=== PATIENT | female | born 1975 | race Caucasian/White ===

== ENCOUNTER 2017-05-20 12:41 | Inpatient (IN) ==
[2017-05-20 13:29] LABS: Basophils % 0.2 %; Eosinophils % 0.2 %; Hematocrit 38.8 % (35.3-44.9); Hemoglobin 13.2 g/dL (11.5-15.4); Immature Granulocytes % 0.5 % (0-4); Lymphocytes # 1.2 K/mcL (0.6-4.6); Lymphocytes % 7.9 %; Mean Corpuscular Hemoglobin 30.3 pg (28.0-33.3); Mean Platelet Volume 9.5 fL (9.4-12.4); Monocytes # 1.3 K/mcL (0.0-1.3); Neutrophils # 12.2 K/mcL (1.6-8.9); Platelet Count 247 K/mcL (140-400); Red Blood Count 4.36 M/mcL (3.82-4.97); Red Cell Distribution Width 12.5 % (11.5-14.5); Segmented Neutrophils % 82.2 %
[2017-05-20 13:42] LABS: BUN/Creatinine Ratio 10 (6-26); Blood Urea Nitrogen 9 mg/dL (7-20); Carbon Dioxide 26 mEq/L (19-29); Chloride 104 mEq/L (98-109); Glucose 83 mg/dL (70-99); Osmolality,Calculated 282 (280-300); Potassium 3.5 mEq/L (3.5-4.5); Sodium 137 mEq/L (136-145); eGFR For African Americans > 60 (> 60); eGFR For Non-African Americans > 60 (> 60)
[2017-05-20] MEDS ORDERED: cephALEXin 250 MG CAPSULE PO ONE (13:58)
[2017-05-20] MEDS ORDERED: Vancomycin 1,000 MG in D5% in Water 250 ML IVPB ONE (14:15)
[2017-05-20] MEDS ORDERED: Tdap (Boostrix) Vaccine 0.5 ML SYRINGE IM ONE (14:29)
[2017-05-20] MEDS: *HR* HYDROcodone/Acet 5/325 mg TABLET PO ONE ×2 (14:46→14:52)
--- NOTE | 2017-05-20 14:48 | Emergency Department Note ---
Disposition Clinical Impression: Cellulitis Qualifiers: Site of cellulitis: trunk Site of cellulitis of trunk: abdominal wall Qualified Code(s): L03.311 - Cellulitis of abdominal wall Disposition: Admitted As Inpatient Condition: Fair Instructions: Cellulitis (ED) Referrals: Shalom Vasquez MD [Primary Care Provider] - Forms: ED Satisfaction Letter Time of Disposition: 14:48 Skin/Abscess/FB HPI Chief complaint: ED Skin/Abscess/Foreign Body Stated complaint: bug bite-abdomen Time Seen by Provider: 05/20/17 12:54 Source: patient Mode of arrival: ambulatory Limitations: no limitations Nursing Notes Reviewed: Yes Vital Signs Reviewed: Yes HPI Narrative: Patient is a 41-year-old female no past medical history that presents to the ED with chief complaint cellulitis to abdomen. Patient reports that she was bitten by a bug approximately 4 days ago while working in her garden. Pt started on Bactrim yesterday by her PCP. Patient states that area continues to worsen. States that she is also now having fever, nausea and body aches. She is not up-to-date on tetanus. Pt Subjective Complaint: insect bite/sting, other (Cellulitis worsening) Onset (ago): day(s) Tetanus Up to Date: no Location: Abdomen Severity: moderate Severity scale (1-10): 5 Quality: aching, dull Consistency: constant Improves with: none Worsens with: none Context: none, recent antibiotic (Bactrim) Associated symptoms: Reports: denies other symptoms, fever, chills, nausea, malaise, arthralgias. Denies: rigors, itching, vomiting, myalgias, cough, shortness of breath Home Medications Medication Instructions Recorded Confirmed Fexofenadine HCl 60 mg PO DAILY 05/20/17 05/20/17 Multivitamin [Multi-Day Vitamins] 1 tab PO DAILY 05/20/17 05/20/17 Sulfamethoxazole/Trimeth DS 1 tab PO BID 05/20/17 05/20/17 [Bactrim DS] Allergies Allergy/AdvReac Type Severity Reaction Status Date / Time No Known Allergies Allergy Verified 05/20/17 12:47 All systems ED: reviewed and negative except as stated. Constitutional: Reports: fever, chills. Denies: weakness Cardiovascular: Denies: chest pain Respiratory: Denies: dyspnea Gastrointestinal: Reports: nausea. Denies: abdominal pain, vomiting, diarrhea, constipation, hematemesis, melena, hematochezia Musculoskeletal: Denies: back pain, neck pain Integumentary: Reports: other (Cellulitis). Denies: rash, abrasion Neurological: Denies: headache, weakness, numbness, paresthesias Past Medical History - Past Medical History Source: patient Medical history: Reports: no medical history Psychiatric history: Reports: no psych history DIRECTOR VIDEO history: Reports: no DIRECTOR VIDEO history - Social History Smoking Status: Never smoker Smokeless Tobacco Status: No Alcohol use: Reports: occasionally Drug use: Reports: none Physical Exam - General Limitations: no limitations General appearance: alert, in no apparent distress - Head Head exam: normal inspection - Eye Eye exam: Present: normal appearance - ENT ENT exam: mucous membranes moist - Neck Neck exam: Present: normal inspection - Chest Chest inspection: Present: symmetric chest wall rise - Respiratory Respiratory exam: Present: normal lung sounds bilaterally - Cardiovascular Cardiovascular exam: Present: regular rate, normal rhythm, normal heart sounds - Abdominal Exam Abdominal exam: Present: soft, tenderness (mild tenderness over cellulits. ), normal bowel sounds, other (Soft: small puncture wound noted to right mid abd with surrounding cellulitis approximately 20 cm x 10 cm in size. Mild tenderness with palpation over cellulits. Induration noted. No fluctuance appreciated. ). Absent: distention, guarding, rebound, rigidity, diminished bowel sounds, hyperactive bowel sounds, hypoactive bowel sounds, organomegaly, trauma, incision, psoas sign, obturator sign, heel tap sign, Mckeon's sign, Rovsing's sign, tenderness at McBurney's Point, ascites, bruit, pulsatile mass, hernia, scar - Extremities Exam Extremities exam: Present: normal inspection - Expanded Lower Extremity Exam Gait: observed and normal - Back Exam Back exam: Present: normal inspection, full ROM. Absent: tenderness - Neurological Exam Neurological exam: Present: alert, oriented X3 - Psychiatric Psychiatric exam: Present: normal affect, normal mood - Skin Skin exam: Present: warm, dry, intact, normal color. Absent: rash, cyanosis, diaphoresis Course Course Narrative: Patient is a 41-year-old female no past medical history that presents to the ED with chief complaint cellulitis to abdomen. Patient reports that she was bitten by a bug approximately 4 days ago while working in her garden. Pt started on Bactrim yesterday by her PCP. Patient states that area continues to worsen. States that she is also now having fever, nausea and body aches. She is not up-to-date on tetanus. Pt is a nontoxic-appearing 40-year-old female. Temp 99.9. Heart: RRR. Lungs CTAB. Abdomen: Soft: small puncture wound noted to right mid abd with surrounding cellulitis approximately 20 cm x 10 cm in size. Mild tenderness with palpation of area. Induration noted. No fluctuance appreciated. Back normal inspection, nontender. Extremities within normal limits. Neuro: no focal neurological deficits noted on exam. Bedside ultrasound was obtained. Cellulitis noted with a very small loculation , most likely reactive from the insect bite. Pt doesn't want area I&D. WBC 14.9 Tylenol given for pain. Discussed with patient the option of discharging her home or admitting her for failed outpatient. Patient states that she does not feel well enough to go home and would like to be admitted. Vancomycin ordered. Discussed case with hospitalist. He accepted patient. No other request at this time. Dr. Saenz had [id number] time the patient agrees with my assessment and treatment plan. Vital Signs Temperature 99.9 F H 05/20/17 12:47 Pulse Rate 97 05/20/17 12:47 Respiratory Rate 20 05/20/17 12:47 Blood Pressure 124/82 05/20/17 12:47 O2 Sat by Pulse Oximetry 98 05/20/17 12:47 Temperature 99.9 F H 05/20/17 12:47 Pulse Rate 97 05/20/17 12:47 Respiratory Rate 20 05/20/17 12:47 Blood Pressure 124/82 05/20/17 12:47 O2 Sat by Pulse Oximetry 98 05/20/17 12:47 Oxygen Delivery Oxygen Delivery Room Air Skin/Abscess/Foreign Body - Medical Records Medical records reviewed: Yes I reviewed the patient's medical records. - Lab Data Lab results reviewed: Yes I reviewed the patient's lab results. Result diagrams: 05/20/17 13:23 05/20/17 13:23 Lab Results 05/20/17 05/20/17 Range/Units 13:23 13:23 WBC 14.9 H (4.3-11.1) K/mcL RBC 4.36 (3.82-4.97) M/mcL Hgb 13.2 (11.5-15.4) g/dL Hct 38.8 (35.3-44.9) % MCV 89.0 (83.0-100.0) fL MCH 30.3 (28.0-33.3) pg MCHC 34.0 (31.6-35.5) g/dL RDW 12.5 (11.5-14.5) % Plt Count 247 (140-400) K/mcL MPV 9.5 (9.4-12.4) fL Immature Gran % 0.5 (0-4) % Seg Neutrophils % 82.2 % Lymphocytes % 7.9 % Monocytes % 9.0 % Eosinophils % 0.2 % Basophils % 0.2 % Neutrophils # 12.2 H (1.6-8.9) K/mcL Lymphocytes # 1.2 (0.6-4.6) K/mcL Monocytes # 1.3 (0.0-1.3) K/mcL Eosinophils # 0.0 (0.0-0.6) K/mcL Basophils # 0.0 (0.0-0.2) K/mcL Sodium 137 (136-145) mEq/L Potassium 3.5 (3.5-4.5) mEq/L Chloride 104 (98-109) mEq/L Carbon Dioxide 26 (19-29) mEq/L BUN 9 (7-20) mg/dL Creatinine 0.86 (0.57-1.11) mg/dL Est GFR ( Amer) > 60 (> 60) Est GFR (Non-Af Amer) > 60 (> 60) BUN/Creatinine Ratio 10 (6-26) Glucose 83 (70-99) mg/dL Calculated Osmolality 282 (280-300) Calcium 10.0 (8.6-10.8) mg/dL Attestation Statement - Attestation Attestation: I, Abdullahi Saenz DO have provided [id number] time during the care of this patient. Detailed review the presentation, symptoms, medical history were discussed and reviewed with the mid-level provider Farhana Saenz PA-C/KEYSMITH. Medical intervention labs and imaging studies were reviewed in detail. See full documentation of physical exam and course of care in the mid-level provider 's note. I agree with the determined course of care, medical interventio,n and disposition put forth by the mid-level provider. See below documentation for changes or alterations in documentation. 41-year-old female presents emergency room with what appears to be insect bites of the abdomen. She was seen by her PCP and started on Bactrim secondary to concern for infection. Over the last 2-3 days the abscess areas continued to get more red swollen and irritated. Patient is borderline febrile with a temperature of 100 here in the emergency room along with systemic symptoms including myalgias muscle aches and fever. Patient denies any tick bite exposure. Denies any other medical history. She is not up-to-date on tetanus. Patient has been taking antibiotics as prescribed at home but the redness swelling and irritation of his progress. Because patient has progression of symptoms and what appears to be filled outpatient treatment IV antibiotics labs and admission were offered to the patient. After treatment course here in the emergency room she elected to be admitted. Patient will be admitted at this time for what appears to be clinical progression of superficial cellulitis. Bedside ultrasound completed showing small loculation most likely reactionary secondary to the bite. Admission passes completed at this time see detailed documentation of his course of care and conversations in the mid-level provider' s note. I agree with the medical intervention and treatment course
--- NOTE | 2017-05-20 15:20 | Event Note ---
Date of Encounter: 05/20/17 Time of Encounter: 15:16 1. Sepsis secondary to abdominal cellulitis (white blood cell count 14.9 heart rate 97) but failed outpatient therapy with Bactrim, insect bite related Start doxycycline IV 100 mg twice a day, blood cultures Consider vancomycin IV if not improving. Marked the affected area IV fluids, Motrin Toradol for pain Consider imaging studies if not improving 2. Leukocytosis related to sepsis 3. Fever, low-grade Early ambulation for DVT prophylaxis. Patient will be admitted as inpatient, expected stay more than to midnights. Full code. Time spent on this admission 40 minutes. High risk due to sepsis. Note to be written by NOE Pascual
[2017-05-20] MEDS ORDERED: 0.9 % Sodium Chloride 500 ML IVC ONE (15:32)
[2017-05-20] MEDS ORDERED: Ibuprofen 400 MG TABLET PO PRN (15:33)
[2017-05-20] MEDS ORDERED: Naloxone 0.4 MG/ML INJ IVP PRN (15:33)
[2017-05-20] MEDS ORDERED: Ondansetron 4 MG/2 ML VIAL IVP PRN (15:33)
--- NOTE | 2017-05-20 15:56 | Internal Med History&Physical ---
<Yazmin Pascual M - Last Filed: 05/20/17 16:05> Date of Encounter: 05/20/17 Time of Encounter: 15:47 Assessment and Plan (1) Cellulitis Current visit: Yes Status: Acute Patient presented with erythema and tenderness to area over right side of abdomen. She started bactrim PO yesterday after seeing her PCP. Her sympoms have continue to progress despite starting antibiotics. IV doxycycline BID IV fluids 0.9NS at 100mL/hr Area of erythema marked to monitor progression of cellulitis. Qualifiers: Site of cellulitis: trunk Site of cellulitis of trunk: abdominal wall Qualified Code(s): L03.311 - Cellulitis of abdominal wall (2) Sepsis Current visit: Yes Status: Acute Patient presents with bug bite from 4 days ago with worsening erythema and flu like symptoms. WBC 14.9, patient mildly tachycardic with HR in 90s. Blood cultures and lactate ordered Patient given 1L bolus Patient started on broad spectrum antibiotics with vancomycin in ED, will switch to doxycycline. Qualifiers: Sepsis type: sepsis due to unspecified organism Qualified Code(s): A41.9 - Sepsis, unspecified organism (3) Nausea Current visit: Yes Status: Acute Patient reporting occasional nausea. PRN zofran. (4) Low grade fever Current visit: Yes Status: Acute Patient with fever of 99.9, reporting chills and sweats. tyelenol and ibuprofen PRN for fever and discomfort. (5) DVT prophylaxis Current visit: Yes Status: Acute anti-embolic stockings lovenox 40mg SQ daily Internal Medicine - H&P: HPI Chief complaint: cellulitis Admitted From: Emergency Dept Plans for Post Hospital Care: Home History of present illness: Ms. Plascencia is a 41 year old female with no medical history presents with complaints of bug bite. Patient reports she was working in her garden 4 days ago and got a bug bite on her abdomen. She reports the next day the bite was red and itchy and appeared like a mosquito day. It was bigger and tender then following day, and yesterday the redness spread and she started having flu like symptoms with subjective fever, chills, sweats, nausea and body aches. She presented to her PCP who prescribed bactrim, but her symptoms progressed today. She denies any lightheadness, dizziness, chest pain, palpitations, shortness of breath, vomiting. She reports some diarrhea since starting the bactrim. Evaluation in the ED revealed elevated WBC of 14.9, low grade fever of 99.9 and mild tachycardia with HR in the 90s. On exam, patient alert and oriented, in no distress. Heart has regular rate and rhythm, lungs clear bilaterally to auscultation. Right side of abdomen with erythema approximately 20cm x 10cm with central firmness to palpation. Patient reports area is tender. Past Med Surg Social Fam HX - Past Medical History Medical history: no medical history Psychiatric history: no psych history - Past Surgical History Surgical History: other (adenoidectomy, d&c) - Social History Smoking Status: Former smoker Smokeless Tobacco Status: No Alcohol use: occasionally Drug use: none - Family History Mother Living Status: Still Living Hx Family Cardiac Disorders: Yes (Aortic stenosis) Father Living Status: Still Living Hx Family Cardiac Disorders: Yes ([place]) Internal Medicine - H&P: Meds Fexofenadine HCl 60 mg PO DAILY 05/20/17 [History] Multivitamin [Multi-Day Vitamins] 1 tab PO DAILY 05/20/17 [History] Sulfamethoxazole/Trimeth DS [Bactrim DS] 1 tab PO BID 05/20/17 [History] Allergies No Known Allergies Allergy (Verified 05/20/17 12:47) All Systems PM: A 10-system review of systems was performed and is negative for pertinent findings except as documented above in the HPI. - Constitutional Constitutional: chills, fever(s), malaise, no night sweats - EENT Eyes: no change in vision, no discharge, no pain, no photophobia Ears: no ear discharge, no ear pain, no tinnitus Nose, mouth and throat: no dysphagia, no nasal discharge, no neck pain, no sore throat - Cardiovascular Cardiovascular ROS IM: no chest pain, no diaphoresis, no dyspnea, no lightheadedness, no palpitations, no syncope - Respiratory Respiratory: no cough, no dyspnea, no wheezing, no excessive phlegm production - Gastrointestinal Gastrointestinal: nausea, no abdominal pain, no diarrhea, no hematemesis, no hematochezia, no melena, no vomiting - Genitourinary Genitourinary: no change in urinary stream, no dysuria, no flank pain, no hematuria - Musculoskeletal Musculoskeletal ROS IM: no numbness, no tingling - Integumentary Integumentary IM: as per HPI, no rash, no unusual bruising - Neurological Neurological ROS: no confusion, no convulsions, no focal weakness, no numbness, no tingling, no tremor(s) - Hematologic/Lymphatic Hematologic/Lymphatic: no easy bruising - Constitutional Vitals: Temp Pulse Resp BP Pulse Ox 99.9 F H 97 20 124/82 98 05/20/17 12:47 05/20/17 12:47 05/20/17 12:47 05/20/17 12:47 05/20/17 12:47 General appearance: Present: A&O X 3, morbidly obese, pleasant, no acute distress - Head Head exam: Present: atraumatic, normocephalic - Eye Eye exam: Present: PERRL, conjuntiva pink, sclera anicteric Pupils: Present: PERRL - Neck Neck exam general surgery: Present: supple, trachea midline. Absent: lymphadenopathy - Respiratory Respiratory exam: Present: CTAB. Absent: accessory muscle use, rales, rhonchi, wheezes - Cardiovascular Cardiovascular exam: Present: RRR, +S1, +S2. Absent: diastolic murmur, gallop, rubs, systolic murmur - GI/Abdominal GI/Abdominal exam: Present: normal bowel sounds, soft, no peritoneal signs. Absent: distended, tenderness - Extremities Exam Extremities exam: Present: warm, radial pulses palpable and symetrical. Absent : calf tenderness, cyanotic, pedal edema - Neurological Exam Neurological exam: Present: CN II-XII intact, oriented X3, no focal deficits. Absent: pronater drift, facial droop, speech deficit - Skin Additional comments: right side of abdomen with 20cm x 10cm area of tender erythema, with central firmness to palpation. area marked. Internal Med - H&P Results - Labs CBC & Chem 7: 05/20/17 13:23 05/20/17 13:23 Labs: Short CBC 05/20/17 Range/Units 13:23 WBC 14.9 H (4.3-11.1) K/mcL Hgb 13.2 (11.5-15.4) g/dL Hct 38.8 (35.3-44.9) % Plt Count 247 (140-400) K/mcL Neutrophils # 12.2 H (1.6-8.9) K/mcL [facility] 05/20/17 13:23 Sodium 137 Potassium 3.5 Chloride 104 Carbon Dioxide 26 BUN 9 Creatinine 0.86 Glucose 83 Calcium 10.0 <Hieu Yang H - Last Filed: 05/21/17 11:44> Date of Encounter: 05/21/17 Internal Medicine - H&P: HPI History of present illness: Ms. Plascencia is a 41 year old female All Systems PM: A 10-system review of systems was performed and is negative for pertinent findings except as documented above in the HPI. - Constitutional Vitals: Temp Pulse Resp BP Pulse Ox 98.0 F 70 16 104/70 94 05/21/17 07:17 05/21/17 07:17 05/21/17 07:17 05/21/17 07:17 05/21/17 10:54 Internal Med - H&P Results - Labs CBC & Chem 7: 05/21/17 06:00 05/21/17 06:00 Labs: Short CBC 05/21/17 Range/Units 06:00 WBC 13.2 H (4.3-11.1) K/mcL Hgb 11.2 L D (11.5-15.4) g/dL Hct 33.7 L (35.3-44.9) % Plt Count 229 (140-400) K/mcL Neutrophils # 10.4 H (1.6-8.9) K/mcL [facility] 05/21/17 06:00 Sodium 136 Potassium 3.3 L Chloride 107 Carbon Dioxide 22 BUN 7 Creatinine 0.76 Glucose 105 H Calcium 8.9 - Attending Attestation 1. Sepsis secondary to abdominal cellulitis (white blood cell count 14.9 heart rate 97) but failed outpatient therapy with Bactrim, insect bite related Start doxycycline IV 100 mg twice a day, blood cultures Consider vancomycin IV if not improving. Marked the affected area IV fluids, Motrin Toradol for pain Consider imaging studies if not improving 2. Leukocytosis related to sepsis 3. Fever, low-grade Early ambulation for DVT prophylaxis. Patient will be admitted as inpatient, expected stay more than to midnights. Full code. Time spent on this admission 40 minutes. High risk due to sepsis. For this encounter, I have reviewed the MINE PATROL or PA documentation, treatment plan, and medical decision making; and I have had face to face time with this patient.
[2017-05-20] MEDS: 0.9 % Sodium Chloride 1,000 ML IVC SCH (16:07)
[2017-05-20] MEDS: Doxycycline 100 MG in 0.9 % Sodium Chloride Mini Bag 100 ML IVPB SCH (17:13)
[2017-05-20] MEDS ORDERED: Acetaminophen 325 MG TABLET PO PRN (21:00)
[2017-05-21] MEDS: 0.9 % Sodium Chloride 1,000 ML IVC SCH ×2 (03:53→17:12)
[2017-05-21] MEDS: Doxycycline 100 MG in 0.9 % Sodium Chloride Mini Bag 100 ML IVPB SCH ×2 (05:12→17:12)
[2017-05-21] MEDS: *HR* Enoxaparin 40 MG/0.4 ML SYRINGE SQ SCH (05:13)
[2017-05-21 06:12] LABS: Basophils % 0.2 %; Eosinophils # 0.1 K/mcL (0.0-0.6); Eosinophils % 0.7 %; Hematocrit 33.7 % (35.3-44.9); Immature Granulocytes % 0.8 % (0-4); Lymphocytes # 1.5 K/mcL (0.6-4.6); Lymphocytes % 11.6 %; Mean Corpuscular HGB Conc 33.2 g/dL (31.6-35.5); Mean Corpuscular Hemoglobin 29.3 pg (28.0-33.3); Mean Corpuscular Volume 88.2 fL (83.0-100.0); Mean Platelet Volume 9.7 fL (9.4-12.4); Monocytes % 7.8 %; Neutrophils # 10.4 K/mcL (1.6-8.9); Platelet Count 229 K/mcL (140-400); Red Blood Count 3.82 M/mcL (3.82-4.97); Red Cell Distribution Width 12.6 % (11.5-14.5); Segmented Neutrophils % 78.9 %
[2017-05-21 06:19] LABS: Hemoglobin 11.2 g/dL (11.5-15.4)
[2017-05-21 06:30] LABS: BUN/Creatinine Ratio 9 (6-26); Blood Urea Nitrogen 7 mg/dL (7-20); Calcium 8.9 mg/dL (8.6-10.8); Carbon Dioxide 22 mEq/L (19-29); Chloride 107 mEq/L (98-109); Glucose 105 mg/dL (70-99); Osmolality,Calculated 280 (280-300); Potassium 3.3 mEq/L (3.5-4.5); Sodium 136 mEq/L (136-145); eGFR For African Americans > 60 (> 60); eGFR For Non-African Americans > 60 (> 60)
[2017-05-21] MEDS: Vancomycin 1,500 MG in D5% in Water 250 ML IVPB SCH (13:30)
[2017-05-21] MEDS: Acetaminophen 325 MG TABLET PO PRN ×2 (13:34→22:00)
--- NOTE | 2017-05-21 15:41 | Internal Med Progress Note ---
Date of Encounter: 05/21/17 Time of Encounter: 10:10 - Assessment and plan (1) Cellulitis Current Visit: Yes Status: Acute Assessment and plan: Acute cellulitis of the right abdominal wall - secondary to insect bite - now improving Continue empiric IV doxycycline, IV vancomycin, continue IV fluids Labs in a.m., anticipate discharge home in a.m. with by mouth Bactrim and doxycycline Qualifiers: Site of cellulitis: trunk Site of cellulitis of trunk: abdominal wall Qualified Code(s): L03.311 - Cellulitis of abdominal wall (2) DVT prophylaxis Current Visit: Yes Status: Acute Assessment and plan: Continue Lovenox subcutaneous - Time Spent With Patient 25 - 35 minutes - Subjective Interval history: Examined this morning. Patient is awake and alert. Not in any distress. Denies chest pain or shortness of breath. No fever. Admitted for cellulitis over the abdominal wall. Patient has been started on IV doxycycline. Patient states her pain is now better. No other acute events or complaints. - Constitutional Vitals: Temp Pulse Resp BP Pulse Ox 98.3 F 76 16 108/72 98 05/21/17 15:08 05/21/17 15:08 05/21/17 15:08 05/21/17 15:08 05/21/17 15:08 General appearance: Present: A&O X 3, morbidly obese, pleasant, no acute distress, answers questions appropriately - Head Head exam: Present: atraumatic - Eye Eye exam: Present: EOMI - ENT ENT exam: Present: mucous membranes moist - Neck Neck exam general surgery: Present: supple - Respiratory Respiratory exam: Present: CTAB. Absent: rales, rhonchi, stridor, wheezes, tachypnea - Cardiovascular Cardiovascular exam: Present: RRR, +S1, +S2 - GI/Abdominal GI/Abdominal exam: Present: soft, no peritoneal signs. Absent: distended, firm , guarding, rigid, tenderness - Extremities Exam Extremities exam: Present: radial pulses palpable and symetrical. Absent: cyanotic, pedal edema, tenderness - Neurological Exam Neurological exam: Present: alert, oriented X3, no focal deficits - Skin Additional comments: Right abdominal wall erythema measuring 20 cm x 10 cm, with tenderness, with possible underlying abscess - seems to be improving Internal Medicine: Result - Labs CBC & Chem 7: 05/21/17 06:00 05/21/17 06:00 Labs: Short CBC 05/21/17 Range/Units 06:00 WBC 13.2 H (4.3-11.1) K/mcL Hgb 11.2 L D (11.5-15.4) g/dL Hct 33.7 L (35.3-44.9) % Plt Count 229 (140-400) K/mcL Neutrophils # 10.4 H (1.6-8.9) K/mcL [facility] 05/21/17 06:00 Sodium 136 Potassium 3.3 L Chloride 107 Carbon Dioxide 22 BUN 7 Creatinine 0.76 Glucose 105 H Calcium 8.9 Consult Discharge Plan - Plan Referrals: Shalom Vasquez MD [Primary Care Provider] -
[2017-05-22] MEDS: Vancomycin 1,500 MG in D5% in Water 250 ML IVPB SCH ×2 (01:18→14:02)
[2017-05-22] MEDS: 0.9 % Sodium Chloride 1,000 ML IVC SCH ×3 (01:35→21:08)
[2017-05-22 04:34] LABS: Basophils % 0.4 %; Eosinophils # 0.2 K/mcL (0.0-0.6); Eosinophils % 2.2 %; Hematocrit 35.3 % (35.3-44.9); Hemoglobin 11.4 g/dL (11.5-15.4); Immature Granulocytes % 0.8 % (0-4); Lymphocytes # 2.1 K/mcL (0.6-4.6); Lymphocytes % 20.3 %; Mean Corpuscular HGB Conc 32.3 g/dL (31.6-35.5); Mean Corpuscular Hemoglobin 29.1 pg (28.0-33.3); Mean Corpuscular Volume 90.1 fL (83.0-100.0); Monocytes # 0.7 K/mcL (0.0-1.3); Monocytes % 6.9 %; Neutrophils # 7.2 K/mcL (1.6-8.9); Platelet Count 253 K/mcL (140-400); Red Blood Count 3.92 M/mcL (3.82-4.97); Red Cell Distribution Width 12.7 % (11.5-14.5); Segmented Neutrophils % 69.4 %
[2017-05-22 04:54] LABS: BUN/Creatinine Ratio 8 (6-26); Blood Urea Nitrogen 6 mg/dL (7-20); Calcium 9.1 mg/dL (8.6-10.8); Carbon Dioxide 27 mEq/L (19-29); Chloride 108 mEq/L (98-109); Glucose 89 mg/dL (70-99); Osmolality,Calculated 289 (280-300); Potassium 3.5 mEq/L (3.5-4.5); Sodium 141 mEq/L (136-145); eGFR For African Americans > 60 (> 60); eGFR For Non-African Americans > 60 (> 60)
[2017-05-22 05:09] LABS: Large Platelets Present (Not Present); Platelet Estimate Normal (Normal)
[2017-05-22] MEDS: Doxycycline 100 MG in 0.9 % Sodium Chloride Mini Bag 100 ML IVPB SCH ×2 (05:10→18:09)
[2017-05-22] MEDS: *HR* Enoxaparin 40 MG/0.4 ML SYRINGE SQ SCH (05:17)
--- NOTE | 2017-05-22 14:52 | Internal Med Progress Note ---
Date of Encounter: 05/22/17 Time of Encounter: 08:45 - Assessment and plan (1) Cellulitis Current Visit: Yes Status: Acute Assessment and plan: Acute cellulitis of the right abdominal wall - secondary to insect bite - slightly worsening Continue empiric IV doxycycline, IV vancomycin, continue IV fluids IV Rocephin added today CT abdomen with contrast - moderate to large amount of subcutaneous inflammation involving the right upper anterior abdominal wall likely treat cellulitis with no drainable fluid collection Labs in a.m., anticipate discharge home in a.m. with by mouth Bactrim and doxycycline Qualifiers: Site of cellulitis: trunk Site of cellulitis of trunk: abdominal wall Qualified Code(s): L03.311 - Cellulitis of abdominal wall (2) DVT prophylaxis Current Visit: Yes Status: Acute Assessment and plan: Continue Lovenox subcutaneous - Time Spent With Patient 25 - 35 minutes - Subjective Interval history: Examined this morning. Patient is awake and alert. Not in any distress. Denies chest pain or shortness of breath. No fever. Admitted for cellulitis over the abdominal wall. IV antibiotics continued. Patient states her pain has improved but redness seems to be worsening. No other acute events or complaints. CT of the abdomen with contrast shows moderate to large amount of subcutaneous inflammation involving the right upper anterior abdominal wall but no drainable fluid collection. - Constitutional Vitals: Temp Pulse Resp BP Pulse Ox 98.3 F 73 16 114/76 97 05/22/17 11:26 05/22/17 11:26 05/22/17 11:26 05/22/17 11:26 05/22/17 11:26 General appearance: Present: A&O X 3, morbidly obese, pleasant, no acute distress, answers questions appropriately - Head Head exam: Present: atraumatic - Eye Eye exam: Present: EOMI - ENT ENT exam: Present: mucous membranes moist - Neck Neck exam general surgery: Present: supple - Respiratory Respiratory exam: Present: CTAB. Absent: rales, rhonchi, stridor, wheezes, tachypnea - Cardiovascular Cardiovascular exam: Present: RRR, +S1, +S2 - GI/Abdominal GI/Abdominal exam: Present: soft, no peritoneal signs. Absent: distended, firm , guarding, rigid, tenderness - Extremities Exam Extremities exam: Present: radial pulses palpable and symetrical. Absent: cyanotic, pedal edema, tenderness - Neurological Exam Neurological exam: Present: alert, oriented X3, no focal deficits - Skin Additional comments: Right abdominal wall erythema measuring 20 cm x 10 cm, with tenderness and erythema, with possible underlying abscess - worsening Internal Medicine: Result - Labs CBC & Chem 7: 05/22/17 03:58 05/22/17 03:58 Labs: Short CBC 05/22/17 Range/Units 03:58 WBC 10.3 (4.3-11.1) K/mcL Hgb 11.4 L (11.5-15.4) g/dL Hct 35.3 (35.3-44.9) % Plt Count 253 (140-400) K/mcL Neutrophils # 7.2 (1.6-8.9) K/mcL BMP 05/22/17 03:58 Sodium 141 Potassium 3.5 Chloride 108 Carbon Dioxide 27 BUN 6 L Creatinine 0.78 Glucose 89 Calcium 9.1 - Impressions Impressions Abdomen CT 05/22/17 09:30 IMPRESSION: 1. Moderate to large amount of subcutaneous inflammation involving the right upper anterior abdominal wall likely due to cellulitis in the proper clinical setting. D/ / Tristan Causey MD / Tristan Causey MD Interpreting Provider: Tristan Causey MD Consult Discharge Plan - Plan Referrals: Shalom Vasquez MD [Primary Care Provider] - 05/30/17 11:30 am
[2017-05-23] MEDS: Vancomycin 1,500 MG in D5% in Water 250 ML IVPB SCH (02:51)
[2017-05-23] MEDS ORDERED: Vancomycin 1,750 MG in D5% in Water 500 ML IVPB SCH (03:00)
[2017-05-23] MEDS: Doxycycline 100 MG in 0.9 % Sodium Chloride Mini Bag 100 ML IVPB SCH (06:37)
[2017-05-23] MEDS: *HR* Enoxaparin 40 MG/0.4 ML SYRINGE SQ SCH (06:40)
[2017-05-23 10:21] VITALS: BP 114/78
[2017-05-23] MEDS ORDERED: Lidocaine -MPF 1% 5 ML AMPUL INFILT ONE ×2 (10:54→11:28)
[2017-05-23] MEDS ORDERED: Lidocaine 1% 20 ML MDV INFILT ONE (11:45)
--- NOTE | 2017-05-23 12:21 | Discharge Summary ---
Date of Encounter: 05/23/17 Time of Encounter: 09:20 - Discharge Diagnosis (1) Cellulitis Priority: Primary Status: Acute Comments: Right abdominal wall cellulitis with underlying abscess Status post incision and drainage IV Rocephin, IV doxycycline and IV vancomycin given in hospital CT abdomen with contrast - moderate to large amount of subcutaneous inflammation in the right anterior abdominal wall likely cellulitis with no drainable fluid Continue PO antibiotics at home Follow up with general surgery as outpatient Qualifiers: Site of cellulitis: trunk Site of cellulitis of trunk: abdominal wall Qualified Code(s): L03.311 - Cellulitis of abdominal wall - Discharge Medications Prescriptions: Ibuprofen [Motrin] 600 mg PO Q8HR PRN #20 tab PRN Reason: Moderate Pain Doxycycline 100 mg PO BID 7 Days Sulfamethoxazole/Trimeth DS [Bactrim Ds] 1 tab PO BID 10 Days Home Medications: Fexofenadine HCl 60 mg PO DAILY 05/20/17 [History] Multivitamin [Multi-Day Vitamins] 1 tab PO DAILY 05/20/17 [History] Doxycycline 100 mg PO BID 7 Days 05/23/17 [Rx] Ibuprofen [Motrin] 600 mg PO Q8HR PRN #20 tab 05/23/17 [Rx] Sulfamethoxazole/Trimeth DS [Bactrim Ds] 1 tab PO BID 10 Days 05/23/17 [Rx] Allergies/Adverse Reactions: Allergies No Known Allergies Allergy (Verified 05/20/17 12:47) Procedures/tests Complete & Pending: Procedures Performed prior 72 hours Category Date Time Status CT abdomen w iv no oral [CT] Stat Cat Scan 05/22/17 09:30 Completed Date of admission: 05/20/17 18:06 Primary care physician: Shalom Vasquez MD Consults: 05/23/17 11:07 Consult to Surgery [CONS] Stat Consulting Provider: [facility] Reason for Consult: abdominal wall abscess Call Completed: Yes Anticipated date of discharge: 05/23/17 - Patient Status Disposition: Home, Self-Care Condition: Fair Functional capacity at discharge: independent ambulation Overall status at discharge: patient is progressing back to baseline - Discharge Instructions Instructions: Cellulitis (DC), Incision and Drainage (DC) Follow Up With: Fatmata Ty CNP [Advanced Practice Nurse] - 05/29/17 12:00 pm Shalom Vasquez MD [Primary Care Provider] - 05/30/17 11:30 am Additional Instructions: -Wound care daily. 05/23/2017 okay to reinforce or change after dressing PRN. Do not remove packing. Beginning 05/24/2017: remove packing. Wash with soap and water. Repack with 1/2 inch playing cause and cover with a dry dressing. May replace or reinforce stray dressing as needed. May shower as needed. -Take all antibiotics as directed per medicine. -Report any fevers, increase and drainage, or discomfort. -Follow-up with Fatmata Ty May 29, 2017 at noon - Diet and Activity Activity: resume usual activities as tolerated Diet: advance to your usual diet Hospital course: Ms. Plascencia is a 41 year old female with no significant past medical history. She presented to the ED with complaints of a bug bite to the right side of her abdominal wall. Patient stated that this occurred about 4 days prior to admission while she was working in her garden. She said that initially was red and itchy. Extremities were then started to spread. Patient also had subjective fever or chills sweats and nausea and body aches. She initially went to her primary care physician who prescribed Bactrim. Her symptoms continued to progress. Patient did not have any lightheadedness or dizziness or any other problems. Patient also reported some diarrhea since starting the Bactrim. Initial white count was elevated at 14.9 and she also had a low-grade fever. On initial examination patient had extensive erythema and tenderness of the right side of her abdominal wall measuring about 20 cm x 10 cm with a central firmness. She was started on IV doxycycline and IV vancomycin. Initially her symptoms seemed to improve but the erythema was spreading. Patient also had a central firmness which seemed like an abscess. CT of the abdomen with contrast was done and revealed a soft tissue cellulitis but no drainable fluid. General surgery was consulted and they have evaluated the patient. Patient underwent incision and drainage at the bedside. Purulent material was drained and the wound was packed with iodoform gauze. Patient was also started on IV Rocephin and she received 2 doses in the hospital. Patient is being discharged on Bactrim and doxycycline at this time. Patient did not have fever and did not have any other acute events or complications during her stay in the hospital. Patient is tolerating oral diet well and ambulate. Patient has been explained about her condition and plan of care. She has been explained about wound care. Patient understood and agreed. No unanswered questions. She will follow up with general surgery as outpatient. No unanswered questions. Patient is being discharged in a stable condition. - Time Spent with Patient Total time spent providing and/or coordinating discharge services: Less than 30 minutes - Constitutional Vitals: Temp Pulse Resp BP Pulse Ox 98.6 F 73 15 114/78 98 05/23/17 10:20 05/23/17 10:20 05/23/17 10:20 05/23/17 10:20 05/23/17 10:20 General appearance: Present: A&O X 3, morbidly obese, pleasant, no acute distress, answers questions appropriately - Head Head exam: Present: atraumatic - Eye Eye exam: Present: EOMI - ENT ENT exam: Present: mucous membranes moist - Neck Neck exam general surgery: Present: supple - Respiratory Respiratory exam: Present: CTAB. Absent: rales, rhonchi, stridor, wheezes, tachypnea - Cardiovascular Cardiovascular exam: Present: RRR, +S1, +S2 - GI/Abdominal GI/Abdominal exam: Present: soft. Absent: distended, firm, guarding, rigid, tenderness - Extremities Exam Extremities exam: Present: radial pulses palpable and symetrical. Absent: cyanotic, pedal edema, tenderness - Neurological Exam Neurological exam: Present: alert, oriented X3, no focal deficits - Skin Additional comments: Right abdominal wall erythema measuring 20 cm x 10 cm, with mild tenderness and erythema, with underlying abscess - now improved after I&D
--- NOTE | 2017-05-23 12:43 | General Surgery Consult Note ---
<Janette Stokes - Last Filed: 05/23/17 12:44> Date of Encounter: 05/23/17 Time of Encounter: 10:00 Assessment and Plan (1) Abscess of skin of abdomen Status: Acute Incision and drainage completed. See procedure note. -Wound care daily. 05/23/2017 okay to reinforce or change after dressing PRN. Do not remove packing. Beginning 05/24/2017: remove packing. Wash with soap and water. Repack with 1/2 inch playing cause and cover with a dry dressing. May replace or reinforce stray dressing as needed. May shower as needed. -Take all antibiotics as directed per medicine. -Report any fevers, increase and drainage, or discomfort. -Follow-up with Fatmata Ty May 29, 2017 at noon. -Okay to discharge from a surgical perspective. (2) Cellulitis Status: Acute See plan above Qualifiers: Site of cellulitis: trunk Site of cellulitis of trunk: abdominal wall Qualified Code(s): L03.311 - Cellulitis of abdominal wall History of Present Illness Consult date: 05/23/17 Reason for consult: other (Concern for abdominal skin abscess) Requesting physician: David Fernando) History of present illness: Sissy is a 41 year old female who presents for upper mid abdomen discomfort following a reported "bug bite while working in the garden." She states she was gardening this past Friday and then on Friday had a red itchy spot in the abdomen that began to grow in size, cause more discomfort, and was associated with a fever Tmax 100.5 or early. She was seen as an outpatient and given Bactrim. She denies drainage from the site. She denies aggravating or alleviating factors. She has a noncontributory past medical or surgical history. She denies drug use, cigarette smoking, alcohol, and takes only a multivitamin and allergy medications. She was evaluated in the emergency department and a CAT scan was obtained which showed a moderate to large amount of subcutaneous inflammation in the upper anterior abdominal wall. She was admitted by the hospitalist and was started on IV antibiotics. We were asked to evaluate the patient for consideration of an incision and drainage. Past Med Surg Social Fam HX - Past Medical History Medical history: no medical history, non-contributory Psychiatric history: no psych history - Past Surgical History Surgical History: other - Social History Smoking Status: Former smoker Smokeless Tobacco Status: No Alcohol use: occasionally Drug use: none - Family History Mother Living Status: Still Living Hx Family Cardiac Disorders: Yes (Aortic stenosis) Father Living Status: Still Living Hx Family Cardiac Disorders: Yes (HI) Medications and Allergies Fexofenadine HCl 60 mg PO DAILY 05/20/17 [History] Multivitamin [Multi-Day Vitamins] 1 tab PO DAILY 05/20/17 [History] Doxycycline 100 mg PO BID 7 Days 05/23/17 [Rx] Ibuprofen [Motrin] 600 mg PO Q8HR PRN #20 tab 05/23/17 [Rx] Sulfamethoxazole/Trimeth DS [Bactrim Ds] 1 tab PO BID 10 Days 05/23/17 [Rx] Allergies No Known Allergies Allergy (Verified 05/20/17 12:47) Review of Systems All systems PM: A 10-system review of systems was performed and is negative for pertinent findings except as documented above in the HPI. General Surgery Exam Initial Vital Signs Temp Pulse Resp BP Pulse Ox 99.9 F H 97 20 124/82 98 05/20/17 12:47 05/20/17 12:47 05/20/17 12:47 05/20/17 12:47 05/20/17 12:47 - General physical appearance well developed, well nourished, no distress - ENT normal nares, normal mucosa - Neck trachea midline - Respiratory normal expansion, normal respiratory effort, clear to auscultation - Cardiovascular Cardiovascular exam: Present: RRR - Abdomen Abdomen general surgery: Present: bowel sounds present, soft, tender ( Associated with abscess.), wound (Large, indurated, erythematous, and fluctuate area measuring approximately 16CM(L)x14 cm (W) x5 cm (deep) in the upper right quadrant.) - Integumentary Integumentary general surgery: Present: warm and dry, other (See description above) - Neurologic Present: CN 2-12 grossly intact, normal coordination - Musculoskeletal Present: normal gait, normal posture - Psychiatric Psychiatric general surgery: Present: A&Ox3, appropriate, oriented to person Exam Initial Vital Signs Temp Pulse Resp BP Pulse Ox 99.9 F H 97 20 124/82 98 05/20/17 12:47 05/20/17 12:47 05/20/17 12:47 05/20/17 12:47 05/20/17 12:47 Results - Labs 05/22/17 03:58 05/22/17 03:58 Abnormal lab results Hgb 11.4 g/dL (11.5-15.4) L 05/22/17 03:58 Large Platelets Present (Not Present) A 05/22/17 03:58 BUN 6 mg/dL (7-20) L 05/22/17 03:58 Vancomycin Trough 8.4 mcg/mL (10-20) L 05/23/17 01:50 All other labs normal. - Imaging CT scan - abdomen: report reviewed (See description in HPI) Consult Discharge Plan - Plan Instructions: Cellulitis (DC), Incision and Drainage (DC) Additional Instructions: -Wound care daily. 05/23/2017 okay to reinforce or change after dressing PRN. Do not remove packing. Beginning 05/24/2017: remove packing. Wash with soap and water. Repack with 1/2 inch playing cause and cover with a dry dressing. May replace or reinforce stray dressing as needed. May shower as needed. -Take all antibiotics as directed per medicine. -Report any fevers, increase and drainage, or discomfort. -Follow-up with Fatmata Ty May 29, 2017 at noon Referrals: Shalom Vasquez MD [Primary Care Provider] - 05/30/17 11:30 am Fatmata Ty CNP [Advanced Practice Nurse] - 05/29/17 12:00 pm Prescriptions: Ibuprofen [Motrin] 600 mg PO Q8HR PRN #20 tab PRN Reason: Moderate Pain Doxycycline 100 mg PO BID 7 Days Sulfamethoxazole/Trimeth DS [Bactrim Ds] 1 tab PO BID 10 Days <Suraj Fernando - Last Filed: 05/25/17 08:15> Date of Encounter: 05/23/17 Review of Systems All systems PM: A 10-system review of systems was performed and is negative for pertinent findings except as documented above in the HPI. General Surgery Exam Initial Vital Signs Temp Pulse Resp BP Pulse Ox 99.9 F H 97 20 124/82 98 05/20/17 12:47 05/20/17 12:47 05/20/17 12:47 05/20/17 12:47 05/20/17 12:47 Exam Initial Vital Signs Temp Pulse Resp BP Pulse Ox 99.9 F H 97 20 124/82 98 05/20/17 12:47 05/20/17 12:47 05/20/17 12:47 05/20/17 12:47 05/20/17 12:47 Results - Labs 05/22/17 03:58 05/22/17 03:58 Abnormal lab results Hgb 11.4 g/dL (11.5-15.4) L 05/22/17 03:58 Large Platelets Present (Not Present) A 05/22/17 03:58 BUN 6 mg/dL (7-20) L 05/22/17 03:58 Vancomycin Trough 8.4 mcg/mL (10-20) L 05/23/17 01:50 All other labs normal. - Attending Attestation I reviewed the above assessment and agree with the above plan.
--- NOTE | 2017-05-23 12:49 | General Surgery Procedure Note ---
Date of procedure: 05/23/17 Pre-op diagnosis: Abdominal wall abscess Post-op diagnosis: same Procedure: After informed consent was obtained and appropriate timeout performed, the patient was placed in the supine position. The affected area was cleansed with Betadine swabs. After prepping the abdominal wall, she was localized with 10 mL 's of 1% lidocaine. After achieving appropriate localization, a #11 blade scalpel was used to open the most fluctuant area of the abdominal wall. There was immediate drainage of purulent material. The abscess cavity was opened with the use of hemostats. A large amount of purulent material was decompressed from the cavity. Cultures were obtained for Gram stain, anaerobic culture, aerobic culture. The cavity was flushed with 30 mL's of saline. I then packed her with a quarter inch iodoform gauze covered with dry dressing and taped to secure. Complications: None Anesthesia: local (10ml of 1% lidocaine) Surgeon: Fatmata Ty Berry Picker Machine Operator: Janette Stokes Estimated blood loss (cc): 2 Pathology: other (gram stain, aerobic culture, anerobic culture) Condition: stable Disposition: no change
== END 2017-05-23 14:42 | disposition home or self-care (01) | DRG 603 ==
LOC: EMEROO 12:41 → 3ANU 12:41
PROVIDERS: ADMIT Family Medicine; ATTEND Internal Medicine